=== PATIENT | female | born 1965 | race Hispanic/Latino ===

== ENCOUNTER 2021-10-23 18:59 | Emergency (ER) | payer BC ==
--- OUTSIDE RECORDS SUMMARY | 2021-10-23 19:01 | XMS REPORT | Continuity of Care Document ---
:1965 Author Organization [facility] t Address [address] [place] [address] Care Team Providers Name Role Phone Momo Ramirez Primary Care Physician Doctor Unassigned, Name Attending Clinician Unavailable Joshua MARIN Attending Clinician JOSHUA Attending Clinician Unavailable Payers Payer Name Policy Type Policy Number Effective Date Expiration Date S ource Problems Condition Condition Condition Status Onset Resolution Last Treating Co mments Source Name Details Category Date Date Treatment Clinician Date Body mass Body mass Disease Active 2020-11 Uni vers index index 0-21 ity of (BMI) of (BMI) of 00:00: [place] 20 to 24 20 to 24 00 Medica l Branch Essential Essential Disease Active 2020-11 Uni vers hypertensi hypertensi 0-21 it y of on on 00:00: [place] [address] Medical Branch Hyperglyce Hyperglyce Disease Active 2020-11 U nivers cortez due to cortez due to 0-21 it y of type 2 type 2 00:00: [place] diabetes diabetes 00 Medica l mellitus mellitus Branch Mixed Mixed Disease Active 2020-11 Univers hyperlipid hyperlipid 0-21 it y of emia emia 00:00: [place] [address] Medical Branch Vitamin D Vitamin D Disease Active 2020-11 Uni vers deficiency deficiency 0-21 it y of 00:00: [place] [address] Medical Branch Allergies, Adverse Reactions, Alerts Allergy Allergy Status Severity Reaction(s) Onset Inactive Treating Comm ents Source Name Type Date Date Clinician NO KNOWN Drug Active Univers ALLERGIE Class ity of S [place] [facility] Social History Social Habit Start Date Stop Date Quantity Comments Source History SDOH University o f Alcohol Std [place] [facility] Drinks Branch History SDOH University o f Alcohol Binge [place] [facility] History [facility] o f Alcohol Comment [place] [facility] ical [facility] Alcohol intake 2021-09-28 2021-09-28 Ex-drinker University of 00:00:00 00:00:00 (finding) [facility] Tobacco use and 2021-09-25 2021-09-25 Never used Universit y of exposure 00:00:00 00:00:00 [place] [facility] [place] History SDOH 2021-09-25 2021-09-25 1 University o f Alcohol Frequency 00:00:00 00:00:00 [facility] edical [place] Sex Ass[birth year] At [birth year] Universit y of 00:00:00 00:00:00 [facility] Smoking Status Start Date Stop Date Source Never smoker [facility] Medications Ordered Filled Start Stop Current Ordering Indication Dosage Frequency Signature Comments Components Source Medication Medication Date Date Medication? Clinician (SIG) Name Name losartan 50 2020-11 Yes 1 tablet Un [place] mg tablet 0-28 ity of 14:12: [address] rosuvastati 2020-11 Yes 1 tablet Un [place] n 10 mg 0-28 ity of tablet 14:12: [address] cholecalcif 2020-11 Yes 2 capsules Univers kinza, 0-28 ity of vitamin D3, 14:12: [address] 625 mcg [place] (25,000 unit) Cap ezetimibe 2020-11 Yes 1 tablet Univ ers 10 mg 0-28 ity of tablet 14:12: [address] losartan 50 2020-11 Yes 1 tablet Un [place] mg tablet 0-28 ity of 14:12: [address] rosuvastati 2020-11 Yes 1 tablet Un [place] n 10 mg 0-28 ity of tablet 14:12: [address] cholecalcif 2020-11 Yes 2 capsules Univers kinza, 0-28 ity of vitamin D3, 14:12: [address] 625 mcg [place] (25,000 unit) Cap ezetimibe 2020-11 Yes 1 tablet Univ ers 10 mg 0-28 ity of tablet 14:12: [address] losartan 50 2020-11 Yes 1 tablet Un [place] mg tablet 0-28 ity of 14:12: [address] rosuvastati 2020-11 Yes 1 tablet Un [place] n 10 mg 0-28 ity of tablet 14:12: [address] cholecalcif 2020-11 Yes 2 capsules Univers kinza, 0-28 ity of vitamin D3, 14:12: [address] 625 mcg [place] (25,000 unit) Cap ezetimibe 2020-11 Yes 1 tablet Univ ers 10 mg 0-28 ity of tablet 14:12: [address] losartan 50 2020-11 Yes 1 tablet Un [place] mg tablet 0-28 ity of 14:12: [address] rosuvastati 2020-11 Yes 1 tablet Un [place] n 10 mg 0-28 ity of tablet 14:12: [address] cholecalcif 2020-11 Yes 2 capsules Univers kinza, 0-28 ity of vitamin D3, 14:12: [address] 625 mcg [place] (25,000 unit) Cap ezetimibe 2020-11 Yes 1 tablet Univ ers 10 mg 0-28 ity of tablet 14:12: [address] KOMBIGLYZE 2020-11 Yes Univers XR 0-18 ity of 2.5-1,000 00:00: [place] mg per 00 Medical tablet Branch KOMBIGLYZE 2020-11 Yes Univers XR 0-18 ity of 2.5-1,000 00:00: [place] mg per 00 Medical tablet Branch KOMBIGLYZE 2020-11 Yes Univers XR 0-18 ity of 2.5-1,000 00:00: [place] mg per 00 Medical tablet Branch KOMBIGLYZE 2020-11 Yes Univers XR 0-18 ity of 2.5-1,000 00:00: [place] mg per 00 Medical tablet Branch pioglitazon 2020-11 Yes 1 tablet Un [place] e 15 mg 0-01 ity of tablet 00:00: [address] pioglitazon 2020-11 Yes 1 tablet Un klaa e 15 mg 0-01 ity of tablet 00:00: [address] pioglitazon 2020-11 Yes 1 tablet Un [place] e 15 mg 0-01 ity of tablet 00:00: [address] pioglitazon 2020-11 Yes 1 tablet Un [place]ala e 15 mg 0-01 ity of tablet 00:00: [place] 00 Medical Branch metformin 2020-11- No 2 tablets Un [place] ER 500 mg 009-28 ity of 24 hr 00:00: 00:00 [place] tablet 00 :00 Medical Branch semaglutide 2020-11- No 1 tab as U nivers (RYBELSUS) 009-28 directed ity of 7 mg Tab 00:00: 00:00 [place] 00 :00 Medical Branch metformin 2020-11- No 2 tablets Un kala ER 500 mg 009-28 ity of 24 hr 00:00: 00:00 [place] tablet 00 :00 Medical Branch semaglutide 2020-11- No 1 tab as U nivers (RYBELSUS) 09-28 directed ity of 7 mg Tab 00:00: 00:00 [place] 00 :00 Medical Branch meloxicam 2020- No TAKE 1 Unive rs 15 mg 8-25 10-31 TABLET BY ity of tablet 00:00: 00:00 MOUTH [place] 00 :00 DAILY Medical NEEDED Branch meloxicam 2020- No TAKE 1 Unive rs 15 mg 8-25 10-31 TABLET BY ity of tablet 00:00: 00:00 MOUTH [place] 00 :00 DAILY Medical NEEDED Branch Vital Signs Vital Name Observation Time Observation Value Comments Source Systolic blood 2021-09-25 19:22:00 120 mm[Hg] Univer sity of pressure [facility] Diastolic blood 2021-09-25 19:22:00 79 mm[Hg] Unive rsity of pressure [facility] Heart rate 2021-09-25 19:21:00 81 /min [facility] Respiratory rate 2021-09-25 19:21:00 19 /min Univ ersity of [facility] Body height 2021-09-25 19:21:00 162.6 cm [facility] Body weight 2021-09-25 19:21:00 61.349 kg [facility] BMI 2021-09-25 19:21:00 23.22 kg/m2 [facility] Oxygen saturation in 2021-09-25 19:21:00 98 /min [facility] blood by [facility] Pulse oximetry Branch Procedures Procedure Date / Time Performed Performing Clinician Eduin e EXTERNAL PROVIDER 2021-10-16 06:01:00 Doctor Unassigned, No Univ [facility] [place] RECORDS Name Medical [place] HIGH RISK HPV-THIN 2021-09-25 19:22:00 [facility] PAP SMEAR-LIQUID 2021-09-25 19:22:00 Chip Lewis [facility] BASED-CP [facility] Encounters Start End Encounter Admission Attending Care Care Encounter Source Date/Time Date/Time Type Type Clinicians Facility Department ID 2021-10-16 2021-10-16 Orders Doctor ARACELIS [id number] Univers 00:00:00 00:00:00 Only Unassigned, STEPHEN [id number] ity of [place] [facility] [id number] [place] [id number] [place] [address] Branch 2021-10-15 2021-10-15 Telephone Chip Lewis [facility] [id number] Univers 00:00:00 00:00:00 GARCIA [id number] it y of [id number] [id number] [address] 2021-09-25 2021-09-25 Outpatient R SUMEET LEWISN [facility] [id number] Univers 14:00:00 14:57:42 ity of [facility] 2021-09-25 2021-09-25 Office Chip Lewis [facility] [id number] Univers 13:53:42 14:57:42 Visit GARCIA [id number] it [id number] [id number] [address] 2021-09-25 2021-09-25 Outpatient R SUMEET LEWISN [facility] [id number] Univers 14:00:00 14:00:00 [id number] ity [facility] Results This patient has no known results.
[2021-10-23] MEDS ORDERED: HYDROCODONE/APAP 7.5/325 MG TAB ONE (19:28)
--- NOTE | 2021-10-23 19:48 | RAD REPORT ---
EXAM DESCRIPTION: CT - Pelvis Wo Cont - 10/23/2021 7:30 pm CLINICAL HISTORY: Left hip pain status post fall COMPARISON: None. TECHNIQUE: Computed axial tomography of the pelvis was obtained. Coronal and sagittal reconstruction performed All CT scans are performed using dose optimization technique as appropriate and may include automated exposure control or mA/KV adjustment according to patient size. FINDINGS: No fracture or dislocation is seen. A significant hip joint effusion not displayed Muscles are normal size and density. A subcutaneous contusion is not noted IMPRESSION: No fracture seen
[2021-10-23] MEDS ORDERED: KETOROLAC 30 MG/ML INJ ONE (20:00)
--- NOTE | 2021-10-23 20:07 | EDPHYS ---
Physician Documentation [facility] Name: Lupe Maciel Age: 56 yrs Sex: Female : 1965 Arrival Date: 10/23/2021 Time: 19:03 Bed 13 Private MD: ED Physician Vaibhav Vázquez HPI: 10/23 19:23 This 56 yrs old Female presents to ER via Wheelchair with complaints of Fall kb Injury. 19:23 Details of fall: The patient fell from a height, down approximately 3 stairs. Onset: kb The symptoms/episode began/occurred just prior to arrival. Associated injuries: The patient sustained left lower back, decreased range of motion, painful injury. Severity of symptoms: At their worst the symptoms were moderate, in the emergency department the symptoms are unchanged. The patient has not experienced similar symptoms in the past. The patient has not recently seen a physician. Pt states she fell onto 3 wooden steps, landing on left side. c/o left low back pain and around iliac crest. 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 aj1 Historical: - Allergies: 19:12 No Known Allergies; aj1 - Home Meds: 19:12 Rybelsus 7 mg oral tab 1 tab once daily [Active]; Zinc Sulfate Oral [Active]; Vitamin aj1 D3 oral [Active]; liposomal vitamin c [Active]; aspirin 81 mg Oral chew 1 tab once daily [Active]; metformin 500 mg Oral Tb24 1 tab once daily [Active]; losartan 50 mg oral tab 1 tab once daily [Active]; ezetimibe 10 mg oral tab 1 tab once daily [Active]; rosuvastatin 10 mg oral cpSP 1 cap once daily [Active]; pioglitazone 15 mg oral tab 1 tab once daily [Active]; - PMHx: 19:12 Hypertensive disorder; Diabetes mellitus; hyperlipidemia; aj1 - PSHx: 19:12 Lumpectomy of breast; aj1 - Immunization history:: Client reports having NOT received the Covid vaccine. Flu vaccine is up to date. - Social history:: Smoking status: Patient/guardian denies using tobacco. ROS: 19:22 Constitutional: Negative for fever, chills, and weight loss. kb 19:22 MS/extremity: Positive for pain, tenderness, of the left lower back. 19:22 All other systems are negative. Exam: 19:22 Constitutional: This is a well developed, well nourished patient who is awake, alert, kb and in no acute distress. Head/Face: Normocephalic, atraumatic. ENT: Moist Mucous membranes Respiratory: Respirations even and unlabored. No increased work of breathing, no retractions or nasal flaring. Skin: Warm, dry with normal turgor. Normal color. MS/ Extremity: Pulses equal, no cyanosis. Neurovascular intact. Full, normal range of motion. Neuro: Awake and alert, GCS 15, oriented to person, place, time, and situation. Moves all extremities. Normal gait. Psych: Awake, alert, with orientation to person, place and time. Behavior, mood, and affect are within normal limits. 19:22 Back: pain, that is moderate, of the left low back, ROM is painful, with all movement, normal spinal alignment noted. Vital Signs: 19:12 BP 153 / 78; Pulse 83; Resp 18; Temp 97.8; Pulse Ox 99% on R/A; Weight 61.23 kg (R); aj1 Height 5 ft. 4 in. (162.56 cm) (R); Pain 8/10; 19:12 Body Mass Index 23.17 (61.23 kg, 162.56 cm) aj1 MDM: 19:17 Patient medically screened. kb 19:22 Data reviewed: vital signs, nurses notes. Data interpreted: Pulse oximetry: on room air kb is 99 %. Interpretation: normal. 19:54 Counseling: I had a detailed discussion with the patient and/or guardian regarding: the kb historical points, exam findings, and any diagnostic results supporting the discharge/admit diagnosis, radiology results, the need for outpatient follow up, a family practitioner, to return to the emergency department if symptoms worsen or persist or if there are any questions or concerns that arise at home. 10/23 19:20 Order name: CT Pelvis wo Cont; Complete Time: 19:50 kb Administered Medications: 19:34 Drug: [place] (HYDROcodone-acetaminophen) (7.5 mg-325 mg) 1 tabs Route: PO; aj1 20:05 Drug: Ketorolac 30 mg Route: IM; Site: right deltoid; aj1 Disposition: 10/24 02:23 Co-signature as Attending Physician, Vaibhav Vázquez MD. [email or web address] Disposition Summary: 10/23/21 20:06 Discharge Ordered Location: Home kb Condition: Stable kb Diagnosis - Fall (on) (from) other stairs and steps kb - Low back pain kb Followup: kb - With: Emergency Department - When: As needed - Reason: Worsening of condition Followup: kb - With: Private Physician - When: 2 - 3 days - Reason: Recheck today's complaints, Continuance of care, Re-evaluation by your physician Discharge Instructions: - Discharge Summary Sheet kb - Acute Back Pain, Adult kb - Musculoskeletal Pain kb Forms: - Medication Reconciliation Form kb - Thank You Letter kb - Antibiotic Education kb - Prescription Opioid Use kb Prescriptions: - Cyclobenzaprine 10 mg Oral Tablet - take 1 tablet by ORAL route every 8 hours As needed; 21 tablet; Refills: 0, kb Product Selection Permitted - Diclofenac Sodium 75 mg Oral tablet,delayed release (DR/EC) - take 1 tablet by ORAL route 2 times per day As needed; 30 tablet; Refills: 0, kb Product Selection Permitted Signatures: Dispatcher [employer] Yolie Gallegos, NAVEEN-C NAVEEN-Cayla Banda, RN RN aj1 Vaibhav Vázquez MD MD [email or web address]
--- NOTE | 2021-10-23 20:07 | ER ---
Nurse's Notes [facility] Name: Lupe Maciel Age: 56 yrs Sex: Female : 1965 Arrival Date: 10/23/2021 Time: 19:03 Bed 13 Private MD: Diagnosis: Fall (on) (from) other stairs and steps;Low back pain Presentation: 10/23 19:10 Chief complaint: Patient states: "I fell on my sisters stairs, 3 steps that were going aj1 down. I fell on the left side of my body and I hit the stair on the left side of my back" Patient lower back pain. Care prior to arrival: None. 19:10 Acuity: VIN 4 aj1 19:10 Method Of Arrival: Wheelchair aj1 19:44 Coronavirus screen: At this time, the client does not indicate any symptoms associated aj1 with coronavirus-19. Ebola Screen: No symptoms or risks identified at this time. Initial Sepsis Screen: Does the patient meet any 2 criteria? No. Patient's initial sepsis screen is negative. Does the patient have a suspected source of infection? No. Patient's initial sepsis screen is negative. Risk Assessment: Do you want to hurt yourself or someone else? Patient reports no desire to harm self or others. Onset of symptoms was October 23, 2021. Triage Assessment: 19:12 General: Appears in no apparent distress. uncomfortable, Behavior is calm, cooperative, aj1 appropriate for age. Pain: Complains of pain in back. Neuro: Level of Consciousness is awake, alert, obeys commands, Oriented to person, place, time, situation. Cardiovascular: Patient's skin is warm and dry. Respiratory: Airway is patent Respiratory effort is even, unlabored, Respiratory pattern is regular, symmetrical. 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 aj1 Historical: - Allergies: 19:12 No Known Allergies; aj1 - Home Meds: 19:12 Rybelsus 7 mg oral tab 1 tab once daily [Active]; Zinc Sulfate Oral [Active]; Vitamin aj1 D3 oral [Active]; liposomal vitamin c [Active]; aspirin 81 mg Oral chew 1 tab once daily [Active]; metformin 500 mg Oral Tb24 1 tab once daily [Active]; losartan 50 mg oral tab 1 tab once daily [Active]; ezetimibe 10 mg oral tab 1 tab once daily [Active]; rosuvastatin 10 mg oral cpSP 1 cap once daily [Active]; pioglitazone 15 mg oral tab 1 tab once daily [Active]; - PMHx: 19:12 Hypertensive disorder; Diabetes mellitus; hyperlipidemia; aj1 - PSHx: 19:12 Lumpectomy of breast; aj1 - Immunization history:: Client reports having NOT received the Covid vaccine. Flu vaccine is up to date. - Social history:: Smoking status: Patient/guardian denies using tobacco. Screenin:44 Abuse screen: Denies threats or abuse. Denies injuries from another. Nutritional aj1 screening: No deficits noted. Tuberculosis screening: No symptoms or risk factors identified. Fall Risk Fall in past 12 months (25 points). Gait- Weak (10 pts.). Assessment: 19:38 Pain: Complains of pain in left low back Pain radiates to left leg Pain currently is 8 aj1 out of 10 on a pain scale. Neuro: Reports numbness in left leg weakness. Vital Signs: 19:12 BP 153 / 78; Pulse 83; Resp 18; Temp 97.8; Pulse Ox 99% on R/A; Weight 61.23 kg (R); aj1 Height 5 ft. 4 in. (162.56 cm) (R); Pain 8/10; 19:12 Body Mass Index 23.17 (61.23 kg, 162.56 cm) aj1 ED Course: 19:03 Patient arrived in ED. ja2 19:12 Triage completed. aj1 19:12 Yolie Pratt FNP-C is [facility]. kb 19:12 Vaibhav Vázquez MD is Attending Physician. kb 19:12 Arm band placed on Patient placed in an exam room. aj1 19:22 Cayla Roberts, ALICIA is Primary Nurse. aj1 19:30 CT Pelvis wo Cont In Process Unspecified. EDMS 19:44 Patient has correct armband on for positive identification. Bed in low position. Side aj1 rails up X2. 20:40 No provider procedures requiring assistance completed. Patient did not have IV access aj1 during this emergency room visit. Administered Medications: 19:34 Drug: [place] (HYDROcodone-acetaminophen) (7.5 mg-325 mg) 1 tabs Route: PO; aj1 20:05 Drug: Ketorolac 30 mg Route: IM; Site: right deltoid; aj1 Outcome: 20:06 Discharge ordered by MD. kirkpatrick 20:41 Discharged to home via wheelchair, with family. aj1 20:41 Condition: stable 20:41 Discharge instructions given to patient, Instructed on follow up and referral plans. medication usage, Prescriptions given X 20:43 Patient left the ED. aj1 Signatures: Dispatcher [employer] EDYolie Poe, PRN PHYSICAL THERAPIST-C NAVEEN-Cayla Banda, RN RN aj1 Mirtha Fernandez
[2021-10-23 20:51] VITALS: BP 153/78; TEMP 97.8; O2SAT 99
== END 2021-10-23 20:43 | disposition home or self-care (01) ==
LOC: ER 18:59
DX: M54.50 Low back pain, unspecified (principal); W10.9XXA Fall (on) (from) unspecified stairs and steps, initial encounter; I10 Essential (primary) hypertension; E11.9 Type 2 diabetes mellitus without complications; E78.5 Hyperlipidemia, unspecified
CPT/HCPCS: 72192; 96372; 99283